=== PATIENT | male | born 1980 | race Caucasian/White ===

== ENCOUNTER 2024-04-08 08:29 | Outpatient (REF) | payer OTHER, SELFPAY ==
--- OUTSIDE RECORDS SUMMARY | 2024-04-08 08:40 | XMS_ITS | Encounter Summary ---
Author Organization [employer] Address 75 [facility] 7 [place] [address] Care Team Providers Care Sludge Mill Operator Name Role Phone Celine Galvez NP Primary Care Provider [phone] Reason for Visit * Reason Comments Med Refill Encounter Details Date Type Department Care Team (Late Contact Info) Description 01/17/2024 Refill [facility] MEDICINE [address] [place] [address] Celine Galvez NP [address] [place] [address] Social History Tobacco Use Types Packs/Day Years Used Date Smoking Tobacco: Never Smokeless Tobacco: Never Alcohol Use Standard Drinks/Week Comments Never 0 (1 standard drink = 0.6 oz pur e alcohol) Sex and Gender Information Value Date Recorded Sex Assigned at Male 12/09/2021 10:15 AM EDT Legal Sex Male 10:15 AM EDT Gender Identity Male 12/09/2021 10:15 AM EDT Sexual Orientation Straight 12/09/2021 10 :15 AM EDT documented as of this encounter Plan of Treatment Upcoming Encounters Date Type Department Care Team (Late Contact Info) Description 04/29/2024 10:15 AM EDT Office Visit [facility] MEDICINE [address] [place] [address] Celine Galvez NP [address] [place] [address] documented as of this encounter Visit Diagnoses Not on filedocumented in this encounter Care Teams Sludge Mill Operator Relationship Specialty Start Date End Date Celine Galvez NP [address] [place] [address] PCP - General Family Medicine 04/13/23 documented as of this encounter
--- OUTSIDE RECORDS SUMMARY | 2024-04-08 08:40 | XMS_ITS | Encounter Summary ---
Author Organization [employer] Address 75 [facility] 7 [place] [address] Care Team Providers Care Medicaid Service Coordinator Name Role Phone Celine Galvez NP Primary Care Provider [phone] Reason for Visit * Reason Onset Date Comments Med Refill 03/09/2024 Encounter Details Date Type Department Care Team (Late Contact Info) Description 03/09/2024 Refill [facility] MEDICINE [address] [place] [address] Celine Galvez NP [address] [place] [address] Social History Tobacco Use Types Packs/Day Years [...] Description 04/29/2024 10:15 AM EDT Office Visit [facility] MEDICINE [address] [place] [address] Celine Galvez NP [address] [place] [address] documented as of this encounter Visit Diagnoses Not on filedocumented in this encounter Care Teams Medicaid Service Coordinator Relationship Specialty Start Date End Date Celine Galvez NP [address] [place] [address] PCP - General Family Medicine 04/13/23 documented as of this encounter
--- OUTSIDE RECORDS SUMMARY | 2024-04-08 08:40 | XMS_ITS | Encounter Summary ---
Author Organization [employer] Address 75 [facility] 7 [place] [address] Care Team Providers Care Car Shunter Name Role Phone KojoCeline bradford UMBERTO Primary Care Provider [phone] Reason for Visit * Reason Onset Date Comments chartprep 03/15/2024 Encounter Details Date Type Department Care Team (Late st Contact Info) Description 03/15/2024 Telephone [facility] MEDICINE [address] [place] [address] Franny Camacho MA chartprep Social History Tobacco Use Types Packs/Day Years [...] AM EDT documented as of this encounter Miscellaneous Notes * Telephone Encounter - Franny Camacho MA - 03/15/2024 3:26 PM EST Chart Prep Labs: done Images: done except XR toes Vaccines due: Covid Due, Hep A Due, Hep B Due, PCV20 Due, and Flu Due Referrals: Not Applicable Screenings: Colonoscopy , Eye Exam, and Foot Exam Overdue care gaps: A1C, Glucose, Sbirt, SDOH, PHQ-9, and Oral Health,THIAGO-7, Tobacco documented in this encounter Plan of Treatment Upcoming Encounters Date Type Department Care Team (Late st Contact Info) Description 04/29/2024 10:15 AM EDT Office Visit [facility] MED[facility]INE [address] [place] [address] Celine Galvez NP [address] [place] [address] documented as of this encounter Visit Diagnoses Not on filedocumented in this encounter Care Teams Car Shunter Relationship Specialty Start Date End Date Celine Galvez NP [address] [place] [address] PCP - General Family Medicine 04/13/23 documented as of this encounter
--- OUTSIDE RECORDS SUMMARY | 2024-04-08 08:40 | XMS_ITS | Encounter Summary ---
Author Organization [employer] Address 75 [facility] 7 [place] [address] Care Team Providers Care Color Laboratory Technician Name Role Phone Celine Galvez NP Primary Care Provider [phone] Reason for Visit * Reason Onset Date Comments Med Refill 03/08/2024 Encounter Details Date Type Department Care Team (Late st Contact Info) Description 03/08/2024 Refill [facility] MEDICINE [address] [place] [address] Celine Galvez NP [address] [place] [address] Social History Tobacco Use Types Packs/Day Years [...] encounter Miscellaneous Notes * Telephone Encounter - Jana Luevano LPN - 03/09/2024 8:07 AM EST Next appointment 03/30/24. * Telephone Encounter - Murali Gonzales - 03/08/2024 4:29 PM EST TC from pt requesting medication refill. Medications needing refill : Jardiance 10 MG To be sent to: [id number] - [place], [place] - [address] documented in this encounter Plan of Treatment Upcoming Encounters Date Type Department Care Team (Late st Contact Info) Description 04/29/2024 10:15 AM EDT Office Visit [facility] MEDICINE [address] [place] [address] Celine Galvez NP [address] [place] [address] documented as of this encounter Visit Diagnoses Not on filedocumented in this encounter Care Teams Color Laboratory Technician Relationship Specialty Start Date End Date Celine Galvez NP [address] [place] [address] PCP - General Family Medicine 04/13/23 documented as of this encounter
--- OUTSIDE RECORDS SUMMARY | 2024-04-08 08:40 | XMS_ITS | Encounter Summary ---
Author Organization [employer] Address 75 [facility] 7 [place] [address] Care Team Providers Care Contract Designer Name Role Phone Celine Galvez NP Primary Care Provider [phone] Encounter Details Date Type Department Care Team ([facility] st Contact Info) Description 03/30/2024 10:00 AM EST Office Visit [facility] MEDICINE [address] [place] [address] Celine Galvez NP [address] [place] [address] Type 2 diabetes mellitus without complication, without long-term current use of insulin ([facility]) (Primary Dx); Encounter for health-related screening; Vitamin D deficiency; Screening for colon cancer; Encounter for immunization; Intractable migraine without aura and without status migrainosus Social History Tobacco Use Types Packs/Day Years Used Date Smoking Tobacco: Never Smokeless Tobacco: Never Alcohol Use Standard Drinks/Week Comments Never 0 (1 standard drink = 0.6 oz pur e alcohol) Depression Answer Date Recorded Patient Health Questionnaire-9 Score 2 03/30/2024 Patient Health Questionnaire-9 Score 2 03/30/2024 Last PHQ-9: Questionnaire Data Not on file 0 03/30/2024 Housing Stability Answer Date Recorded What is your housing situation today? I have femi garcia 03/21/[address] you li ve. Do you have problems with any of the following? None of the above 03/21/2024 Food Insecurity Answer Date Recorded Within the past 12 months, y ou worried that your food would run out before you got money to buy more: Never True 03/21/2024 Within the past 12 months,th e food you bought just didn't last and you didn't have enough money to get more: Never True 11/2024 Transportation Answer Date Recorded In the past 12 months, has l ack of transportation kept you from medical appts, meetings, work or from getting things needed for daily living? No 03/21/2024 Utilities Answer Date Recorded In the past 12 months, has t he electric, gas, oil or water company threatened to shut off services in your home? Yes 03/30/2024 Depression Answer Date Recorded Patient Health Questionnaire-2 Score 0 03/30/2024 Internet Access Answer Date Recorded Internet Access Q1 Yes 03/21/2024 Internet Access Q2 Not on file 03/21/2024 Sex and Gender Information Value Date Recorded Sex Assigned at Male 12/09/2021 10:15 AM EDT Legal Sex Male 10:15 AM EDT Gender Identity Male 12/09/2021 10:15 AM EDT Sexual Orientation Straight 12/09/2021 10 :15 AM EDT documented as of this encounter Last Filed Vital Signs Vital Sign Reading Time Taken Comments Blood Pressure 125/86 03/30/2024 10:07 AM EST Pulse 88 03/30/2024 10:07 AM EST Temperature 36.5 ??C (97.7 ??F) 03/30/2024 10:[address] Respiratory Rate 20 03/30/2024 10:07 AM EST Oxygen Saturation 98% 03/30/2024 10:07 AM EST Inhaled Oxygen Concentration - - Weight 105 kg (232 lb) 03/30/2024 10:07 AM EST Height 175.3 cm (5' 9 ) 03/30/2024 10:07 AM EST Body Mass Index 34.26 03/30/2024 10:07 AM EST documented in this encounter Plan of Treatment Upcoming Encounters Date Type Department Care Team (Late st Contact Info) Description 04/29/2024 10:15 AM EDT Office Visit [facility] MEDICINE [address] [place] [address] Celine Galvez NP [address] [place] [address] Scheduled Orders Name Type Priority Associated Diagnoses Orde r Schedule Comprehensive Metabolic Panel Lab Routine Type 2 diabetes mellitus without complication, without long-term current use of insulin (CMS/HCC) Expected: 03/30/2024 (Approximate), Expires: 03/30/2025 Vitamin D, 25-Hydroxy, Total, Immunoassay Lab Routine Vitamin D deficiency Expected: 03/30/2024 (Approximate), Expires: 03/30/2025 Lipid Panel, Standard Lab Routine Type 2 diabetes mellitus without complication, without long-term current use of insulin (CMS/HCC) Expected: 03/30/2024 (Approximate), Expires: 03/30/2025 Hepatitis C Antibody with Reflex to HCV, RNA, Quantitative, Real-Time PCR Lab Routine Encounter for health-related screening Expected: 03/30/2024 (Approximate), Expires: 03/30/2025 HIV-1/2 Antigen and Antibodies, Fourth Generation, with Reflexes Lab Routine Encounter for health-related screening Expected: 03/30/2024 (Approximate), Expires: 03/30/2025 Hepatitis B Core Antibody, Total Lab Routine Encounter for health-related screening Expected: 03/30/2024 (Approximate), Expires: 03/30/2025 Hepatitis B surface antigen, EIA Lab Routine Encounter for health-related screening Expected: 03/30/2024 (Approximate), Expires: 03/30/2025 Hepatitis B Surface Antibody, Qualitative Lab Routine Encounter for health-related screening Expected: 03/30/2024 (Approximate), Expires: 03/30/2025 Cologuard?? colon cancer screening Lab Routine Screening for colon cancer Ordered: 03/30/2024 Albumin, Random Urine W/Creatinine Lab Routine Type 2 diabetes mellitus without complication, without long-term current use of insulin (CMS/HCC) Expected: 03/30/2024 (Approximate), Expires: 03/30/2025 documented as of this encounter Procedures Procedure Name Priority Date/Time Associated Diagnosis Comments POCT GLYCATED HEMOGLOBIN, TOTAL Routine 03/30/2024 10:25 AM EST Type 2 diabetes mellitus without complication, without long-term current use of insulin (CMS/HCC) POCT GLUCOSE Routine 03/30/2024 10:25 AM EST Type 2 diabetes mellitus without complication, without long-term current use of insulin ([facility]) documented in this encounter Results * (ABNORMAL) POCT HGB A1C (03/30/2024 10:25 AM EST) Hemoglobin A1C 6.7(A) 4.0 - 6.0 % QC Media Lot # [id number] Lot# Expiration Date 7,026 Blood 03/30/2024 10:2 5 AM EST us Celine Galvez NP POINT OF CARE TEST ENTER/EDIT O RDERABLES Final Result * POCT Glucose (03/30/2024 10:25 AM EST) Glucose Blood, POC 177 60 - 200 mg/dL QC Media Lot # [id number] Lot# Expiration Date 5302,[id number] Blood Capillary blood specimen / Unknown 03/30/2024 10:25 AM EST us Celine Galvez NP POINT OF CARE TEST ENTER/EDIT O RDERABLES Final Result documented in this encounter Visit Diagnoses Diagnosis Type 2 diabetes mellitus without complication, without long-term current use of insulin ([facility])- Primary Encounter for health-related screening Vitamin D deficiency Screening for colon cancer Special screening for malignant neoplasms, colon Encounter for immunization Intractable migraine without aura and without status migrainosus documented in this encounter Additional Health Concerns Assessment Noted Time PHQ-9 Depression Total Score: 2 03/30/19 25 10:13 AM EST documented as of this encounter Care Teams Contract Designer Relationship Specialty Start Date End Date Celine Galvez NP [address] [place] [address] PCP - General Family Medicine 04/13/23 documented as of this encounter
--- OUTSIDE RECORDS SUMMARY | 2024-04-08 08:41 | XMS_ITS | Encounter Summary ---
Author Organization [employer] Address 75 [facility] 7t [place] [address] Care Team Providers Care Check Viewer Name Role Phone Celine Galvez NP Primary Care Provider [phone] Reason for Visit * Reason Comments Pre-visit Planning SDOH Screening negat kaiden and Tobacco screening negative Encounter Details Date Type Department Care Team (Late st Contact Info) Description 03/21/2024 Patient Outreach [facility] MEDICINE [address] [place] [address] Celine Galvez NP [address] [place] [address] Pre-visit Planning (SDOH Screening negative and Tobacco screening negative) Social History Tobacco Use Types Packs/Day Years Used Date Smoking Tobacco: Never Smokeless Tobacco: Never Alcohol Use Standard Drinks/Week Comments Never 0 (1 standard drink = 0.6 oz pur e alcohol) Housing Stability Answer Date Recorded What is [...] to shut off services in your home? No 03/21/2024 Internet Access Answer Date Recorded Internet Access Q1 Yes 03/21/2024 Internet Access Q2 Not on file 03/21/2024 Sex and Gender Information Value Date Recorded Sex Assigned at Male 12/09/2021 10:15 AM EDT Legal Sex Male 10:15 AM EDT Gender Identity Male 12/09/2021 10:15 AM EDT Sexual Orientation Straight 12/09/2021 10 :15 AM EDT documented as of this encounter Progress Notes * Shruthi Soria - 03/21/2024 9:43 AM EST ANA Alegria placed successful outbound call to patient for pre-visit planning. Patient name and confirmed. Patient confirms appt date and time, and has transportation arrangements. Biggest concern for appointment at this time is no concerns. Patient advised to bring to appointment a photo id and insurance card. Appropriate screenings completed in anticipation of appointment. documented in this encounter Plan of Treatment Upcoming Encounters Date Type Department Care Team (Late st Contact Info) Description 04/29/2024 10:15 AM EDT Office Visit [facility] MEDICINE [address] [place] [address] Celine Galvez NP [address] [place] [address] documented as of this encounter Visit Diagnoses Not on filedocumented in this encounter Care Teams Check Viewer Relationship Specialty Start Date End Date Celine Galvez NP [address] [place] [address] PCP - General Family Medicine 04/13/23 documented as of this encounter
--- OUTSIDE RECORDS SUMMARY | 2024-04-08 08:41 | XMS_ITS | Encounter Summary ---
Author Organization [employer] Address 75 [facility] 7 [place] [address] Care Team Providers Care Aluminum Can Collector Name Role Phone Celine Galvez NP Primary Care Provider [phone] Reason for Visit * Reason Comments Med Refill Encounter Details Date Type Department Care Team (Late Contact Info) Description 10/14/2023 Refill [facility] MEDICINE [address] [place] [address] Celine Galvez NP [address] [place] [address] Social History Tobacco Use Types Packs/Day Years [...] Description 04/29/2024 10:15 AM EDT Office Visit [facility] [address] [place] [address] Celine Galvez NP [address] [place] [address] documented as of this encounter Visit Diagnoses Not on filedocumented in this encounter Care Teams Aluminum Can Collector Relationship Specialty Start Date End Date Celine Galvez NP [address] [place] [address] PCP - General Family Medicine 04/13/23 documented as of this encounter
--- OUTSIDE RECORDS SUMMARY | 2024-04-08 08:41 | XMS_ITS | Encounter Summary ---
Author Organization [employer] Address [address] [place] [address] [place] [address] Care Team Providers Care Partition Setter Name Role Phone Emerita Chavarria STEWARDING SUPERVISOR Primary Care Provider [phone] Mary Ruff STEWARDING SUPERVISOR Primary Care Provider [phone] Celine Galvez NP Primary Care Provider [phone] Reason for Visit * Reason Onset Date Comments triage 04/11/2022 Encounter Details Date Type Department Care Team (Late st Contact Info) Description 04/11/2022 Telephone [facility] MEDICINE [address] [place] [address] Emerita Chavarria FNP [address] [place] [address] Dept [place] [address] triage Social History Tobacco Use Types Packs/Day Years [...] encounter Miscellaneous Notes * Telephone Encounter - Anson Mcnair - 04/11/2022 11:26 AM EST Symptoms: Headache, Eye Swelling Outcome: Schedule an urgent appointment (within 1 hour) or talk to a nurse or provider soon Reason: Severe pain now The caller accepted this outcome documented in this encounter Plan of Treatment Upcoming Encounters Date Type Department Care Team (Late st Contact Info) Description 04/29/2024 10:15 AM EDT Office Visit [facility] MEDICINE [address] [place] [address] Celine Galvez NP [address] [place] [address] documented as of this encounter Visit Diagnoses Not on filedocumented in this encounter Care Teams Partition Setter Relationship Specialty Start Date End Date Emerita Chavarria FNP PCP - General Family Medicine 11/30/20 11/17/22 Mary Ruff FNP [address] [place] [address] PCP - General Family Medicine 11/18/22 04/12/23 Celine Galvez NP [address] [place] [address] PCP - General Family Medicine 04/13/23 documented as of this encounter
--- OUTSIDE RECORDS SUMMARY | 2024-04-08 08:41 | XMS_ITS | Encounter Summary ---
Author Organization [employer] Address 75 [facility] 7t [place] [address] Care Team Providers Care Cemetery Manager Name Role Phone Celine Galvez NP Primary Care Provider [phone] Reason for Visit * Reason Comments Med Refill Encounter Details Date Type Department Care Team (Late Contact Info) Description 10/29/2023 Refill [facility] MEDICINE [address] [place] [address] Celine Galvez NP [address] [place] [address] Social History Tobacco Use Types Packs/Day Years [...] encounter Miscellaneous Notes * Telephone Encounter - Celine Galvez NP - 10/30/2023 9:05 AM EDT Approving, but needs appt for additional refills. documented in this encounter Plan of Treatment Upcoming Encounters Date Type Department Care Team (Late Contact Info) Description 04/29/2024 10:15 AM EDT Office Visit [facility] MEDICINE [address] [place] [address] Celine Galvez NP [address] [place] [address] documented as of this encounter Visit Diagnoses Not on filedocumented in this encounter Care Teams Cemetery Manager Relationship Specialty Start Date End Date Celine Galvez NP [address] [place] [address] PCP - General Family Medicine 04/13/23 documented as of this encounter
--- OUTSIDE RECORDS SUMMARY | 2024-04-08 08:41 | XMS_ITS | Clinical Summary ---
Author Organization [employer] Address [address] [facility] 7t [place] [address] Care Team Providers Care Hand Etcher Helper Name Role Phone Kojosuzette Celine SHIPMAN Primary Care Provider [phone] Allergies No known active allergies Medications cholecalcifero l (Vitamin D-3) 50 MCG (1999) capsule Take 1 capsule by mouth in the morning. 12/08/19 21 Active empagliflozin (Jardiance) 10 MG TAKE 1 TABLET BY MOUTH EVERY DAY IN THE MORNING 90 tablet 03/09/19 25 Active metFORMIN (Glucophage) 500 MG tablet TAKE 2 TABLETS(1000 MG) BY MOUTH TWICE DAILY 360 tablet 03/17/19 25 Active SUMAtriptan (Imitrex) 25 MG tabletIndicati ons:Intractabl e migraine without aura and without status migrainosus Take 1 tablet (25 mg) by mouth 1 (one) time if needed for migraine for up to 9 days. May repeat dose once in 2 hours if no relief. Do not exceed 2 doses in 24 hours. 9 tablet 03/30/19 25 Active naproxen (Naprosyn) 500 MG tabletIndicati ons:Intractabl e migraine without aura and without status migrainosus Take 1 tablet (500 mg) by mouth 2 times daily. 60 tablet 03/30/19 25 2024 Active Blood Glucose Monitoring Suppl (FreeStyle Lite) deviceIndicati ons:Type 2 diabetes mellitus without complication, without long-term current use of insulin ([facility]) Inject 1 each under the skin 3 times daily. 1 each 03/30/19 25 Active glucose blood (FREESTYLE LITE) test strip 1 each by Other route 3 times daily. 100 each 3 03/30/19 25 2024 Active Lancets 33G misc 1 each 3 times daily. 1 each 03/30/19 Active clotrimazole (Lotrimin) 1 % cream Apply 2g twice a day to affected areas 07/25/19 22 2024 Discontinued(M ed list cleanup (will not trigger notification to Pharmacy)) glucose blood (FREESTYLE LITE) test strip every 12 (twelve) hours. 12/08/19 21 2024 Discontinued(R eorder (will not trigger notification to Pharmacy)) ketoconazole (NIZOral) 2 % shampoo apply by topical route 2-3 times a week to the affected area(s), lather, leave in place for 5 minutes, and then rinse off with water 04/27/192024 Discontinued(M ed list cleanup (will not trigger notification to Pharmacy)) terbinafine (LamISIL) 250 MG tablet take 1 tablet by oral route every day x 12 weeks 08/31/192024 Discontinued(M ed list cleanup (will not trigger notification to Pharmacy)) Blood Glucose Monitoring Suppl (FreeStyle Lite) device TEST THREE TIMES DAILY DIRECTED 04/27/19 22 2024 Discontinued(R eorder (will not trigger notification to Pharmacy)) ciclopirox (Penlac) 8 % solution Apply topically at bed time. 12/30/192024 Discontinued(M ed list cleanup (will not trigger notification to Pharmacy)) hydrocortisone valerate (West-Emanuel) 0.2 % ointment Apply topically every 12 (twelve) hours. 12/30/192024 Discontinued(M ed list cleanup (will not trigger notification to Pharmacy)) ibuprofen 600 MG tablet TAKE 1 TABLET BY MOUTH EVERY 8 HOURS NEEDED FOR BREAKTHROUGH PAIN. MAX 2400 MG DAILY 10/12/19 22 2024 Discontinued(M ed list cleanup (will not trigger notification to Pharmacy)) Ibuprofen capsuleIndicat ions:Toe pain, left Take 2-3 tablets every 6 hours as needed for pain or fever 120 capsule 02/09/19 23 2024 Discontinued(M ed list cleanup (will not trigger notification to Pharmacy)) metFORMIN (Glucophage) 500 MG tablet TAKE 2 TABLETS(1000 MG) BY MOUTH TWICE DAILY 360 tablet 11/25/19 24 2024 Discontinued Active Problems Problem Noted Date Diagnosed Date Lipoma 04/26/2021 Tobacco dependence syndrome 04/26/2021 Vitamin D deficiency 2017 Sleep apnea 11/20/2017 Type 2 diabetes mellitus without complication Encounters Date Type Department Care Team Description 03/30/2024 10:00 AM EST Office Visit [facility] MEDICINE [address] [place] [phone] Celine Galvez NP Type 2 diabetes mellitus without complication, without long-term current use of insulin ([facility]) (Primary Dx); Encounter for health-related screening; Vitamin D deficiency; Screening for colon cancer; Encounter for immunization; Intractable migraine without aura and without status migrainosus 03/21/2024 Patient Outreach [facility] MEDICINE [address] [place] [address] Celine Galvez NP Pre-visit Planning (SDOH Screening negative and Tobacco screening negative) 03/17/2024 Refill [facility] CHC MED & PEDS [address] [place] [address] Celine Galvez NP 03/15/2024 Telephone [facility] MEDICINE [address] [place] [address] Franny Camacho MA chartprep 03/09/2024 Refill [facility] MEDICINE [address] [place] [phone] Celine Galvez NP 03/08/2024 Refill [facility] MEDICINE [address] [place] [address] Celine Galvez NP 01/22/2024 Telephone [facility] MEDICINE [address] [place] [phone] Franny Camacho MA schedule TP appt 01/17/2024 Refill [facility] MEDICINE [address] [place] [address] Appram, Celine, JOINTER MACHINE OPERATOR from Last 3 Months Immunizations Name Administration Dates Next Due Influenza injectable quadriv alent IIV4 with preservative 11/20/2017 Influenza injectable quadriv alent preservative free 03/18/2023,12/07/2020,11/10/2019,2019 Pfizer Covid-19 Vaccine 12+ 03/18/2023 Pneumococcal Conjugate PCV 20 03/30/2024 Tdap 04/26/2021 Family History Medical History Relation Name Comments Heart disease Father Diabetes Mother Heart disease Paternal Grandfather Relation Name Status Comments Father Mother Paternal Grandfather Social History Tobacco Use Types Packs/Day Years Used Date Smoking Tobacco: Never Smokeless Tobacco: Never Tobacco Cessation:Counseling Given: No Alcohol Use Standard Drinks/Week Comments Never 0 [...] Orientation Straight 12/09/2021 10 :15 AM EDT Last Filed Vital Signs Vital Sign Reading [...] Mass Index 34.26 03/30/2024 10:07 AM EST Plan of Treatment Upcoming Encounters Date Type Department Care Team (Late st Contact Info) Description 04/29/2024 10:15 AM EDT Office Visit [facility] MEDICINE [address] [place] [address] Celine Galvez NP [address] [place] [address] Health Maintenance Due Date Last Done Comments CT Colonography 1978 Colonoscopy 1978 Colorectal Cancer Screening 1978 FIT DNA/Cologuard 1978 FIT 1978 FOBT 1978 Sigmoidoscopy 1978 Diabetes: Foot Exam 1988 Eye Exam 1988 Family Planning (PISQ) 1993 Hepatitis A Vaccines (1 of 2 - Risk 2-dose series) 1997 Hepatitis B Vaccines (1 of 3 - 19+ 3-dose series) 1997 Diabetes: Urine Protein Screening 07/24/2022 07/24/2021 Lipid Panel 07/24/2022 07/24/2021, 04/26/2021 COVID-19 Vaccine ( season) 2023 03/18/2023, 03/01/2021, 06/06/2020 Influenza Vaccine (#1) 2023 , 12/07/2020, 11/10/2019, Additional history exists Diabetes: Hemoglobin A1C 09/27/2024 025, 03/18/2023, 07/24/2021 Alcohol/Substance Use Screening 03/30/2025 03/30/2024 Depression Screening 03/30/2025 03/30/2024, 03/30/19 SDOH Screening 03/30/2025 03/30/2024 Tobacco Screening 03/30/2025 03/30/2024 Zoster Vaccines (1 of 2) 2028 DTaP/Tdap/Td Vaccines (2 - Td or Tdap) 04/27/2031 04/26/2021 RSV Patients and Patients Aged 60 years or older (1 - 1-dose 75+ series) 2053 HIV Screening Completed 04/26/2021 Hepatitis C Screening Completed 07/24/2021, 022 Pneumococcal Vaccine: Pediatrics (0 to 5 Years) and At-Risk Patients (6 to 49) Years) Completed 03/30/2024 HIB Vaccines Aged Out No longer eligi ble based on patient's age to complete this topic HPV Vaccines Aged Out No longer eligi ble based on patient's age to complete this topic IPV Vaccines Aged Out No longer eligi ble based on patient's age to complete this topic Meningococcal Vaccine Aged Out No lonnie alta eligible based on patient's age to complete this topic RSV under 20 months Aged Out No longe r eligible based on patient's age to complete this topic Rotavirus Vaccines Aged Out No longer eligible based on patient's age to complete this topic Procedures Procedure Name Priority Date/Time Associated Diagnosis Comments POCT GLYCATED HEMOGLOBIN, TOTAL Routine 03/30/2024 10:25 AM EST Type 2 diabetes mellitus without complication, without long-term current use of insulin (CMS/HCC) POCT GLUCOSE Routine 03/30/2024 10:25 AM EST Type 2 diabetes mellitus without complication, without long-term current use of insulin (CMS/HCC) ZZZ HISTORICAL HEPATITIS C AB W/REFL TO HCV RNA, QN, PCR Routine 07/24/2021 10:29 AM EDT ALBUMIN, RANDOM URINE W/CREATININE Routine 07/24/2021 10:29 AM EDT LIPID PANEL, STANDARD Routine 07/24/2021 10:29 AM EDT HIV 1/2 ANTIGEN/ANTIBODY, FOURTH GENERATION W/RFL Routine 04/26/2021 10:55 AM EDT from Last 3 Months or Most Recently Relevant to Health Maintenance Results * (ABNORMAL) POCT HGB A1C (03/30/2024 10:25 AM EST) Hemoglobin A1C 6.7(A) 4.0 - 6.0 % QC Media Lot # [id number] Lot# Expiration Date Blood 03/30/2024 10:[address] [facility] Kojo JOINTER MACHINE OPERATOR POINT OF CARE TEST ENTER/EDIT O RDERABLES Final Result * POCT Glucose (03/30/2024 10:25 AM EST) Glucose Blood, POC 177 60 - 200 mg/dL QC Media Lot # [id number] Lot# Expiration Date Blood Capillary blood specimen / Unknown 03/30/2024 10:[address] [facility] POINT OF CARE TEST ENTER/EDIT O RDERABLES Final Result * HEPATITIS C AB W/REFL TO HCV RNA, QN, PCR (07/24/2021 10:29 AM EDT) HEPATITIS C ANTIBODY NON-REACT JN NON-REACT JN [facility] INDEX 0.03 <1.00 [facility] Comment: ?? HCV antibody was non-reactive. There is no laboratory ?? evidence of HCV infection. ?? In most cases, no further action is required. However, if recent HCV exposure is suspected, a test for HCV RNA (test code 13452) is suggested. ?? For additional information please refer to http://education.questdiagnostics.com/faq/MEE85u5 (This link is being provided for informational/ educational purposes only.) ?? 07/24/2021 10:2 9 AM EDT us Emerita Chavarria SMOKE CONTROL SUPERVISOR HISTORICAL/NON ORDERABLE L ABS Final Result Performing Organization Address [facility] Phone Number [facility] [address] * ALBUMIN, RANDOM URINE W/CREATININE (07/24/2021 10:29 AM EDT) Microalbumin Urine 0.7 See Note: mg/dL [facility] Comment: Reference Range: ?? Reference Range Not established Microalb/Creat Ratio 10 <30 mcg/mg creat [facility] Comment: ?? The ADA defines abnormalities in albumin excretion as follows: ?? Albuminuria Category ?Result (mcg/mg creatinine) ?? Normal to Mildly increased ?? <30 Moderately increased ? 30-299 ?? Severely increased ? > OR = 300 ?? The ADA recommends that at least two of three specimens collected within a 3-6 month period be abnormal before considering a patient to be within a diagnostic category. Creatinine, Urine 73 20 - 320 mg/dL [facility] 07/24/2021 10:2 9 AM EDT Emerita Chavarria SMOKE CONTROL SUPERVISOR LAB URINE ORDERABLES Final Result Performing Organization Address [facility] Phone Number [facility] [address] * (ABNORMAL) LIPID PANEL, STANDARD (07/24/2021 10:29 AM EDT) Chol/HDLC Ratio 4.8 <5.0 (calc) [facility] Cholesterol, Total 220(H) <200 mg/dL [facility] HDL Cholesterol 46 > OR = 40 mg/dL [facility] LDL Cholesterol 134(H) mg/dL (calc) [facility] Comment: Reference range: <100 ?? Desirable range <100 mg/dL for primary prevention; ?? <70 mg/dL for patients with CHD or diabetic patients ?? with > or = 2 CHD risk factors. ?? LDL-C is now calculated using the Elizabeth ?? calculation, which is a validated novel method providing ?? better accuracy than the Friedewald equation in the ?? estimation of LDL-C. ?? Jesus BOYD et al. ROSS. 2013;310(19): 9171-7167 ?? (http://ClickEquations.Quewey/faq/SOB110) Non-HDL Cholesterol 174(H) <130 mg/dL (calc) [facility] Comment: For patients with diabetes plus 1 major ASCVD risk ?? factor, treating to a non-HDL-C goal of <100 mg/dL ?? (LDL-C of <70 mg/dL) is considered a therapeutic ?? option. Triglycerides 263(H) <150 mg/dL [facility] Comment: ?? If a non-fasting specimen was collected, consider repeat triglyceride testing on a fasting specimen if clinically indicated. ?? July et al. J. of Clin. Lipidol. 2015;9:129-169. ?? 07/24/2021 10:2 9 AM EDT Emerita Chavarria [facility] LAB BLOOD ORDERABLES Final Result [facility] [address] * HIV 1/2 ANTIGEN/ANTIBODY,FOURTH GENERATION W/RFL (04/26/2021 10:55 AM EDT) HIV-1/2 ANTIGEN AND ANTIBODIES, 4TH GENERATION W/ REFLEX NON-REACT JN NON-REACT JN [facility] Comment: HIV-1 antigen and HIV-1/HIV-2 antibodies were not detected. There is no laboratory evidence of HIV infection. ?? PLEASE NOTE: This information has been disclosed to you from records whose confidentiality may be protected by state law. ??If your state requires such protection, then the state law prohibits you from making any further disclosure of the information without the specific written consent of the person to whom it pertains, or as otherwise permitted by law. A general authorization for the release of medical or other information is NOT sufficient for this purpose. ? For additional information please refer to http://education.NEBOTRADE.Bid Nerd/faq/ZVY784 (This link is being provided for informational/ educational purposes only.) ? The performance of this assay has not been clinically validated in patients less than 2 years old. ?? 04/26/2021 10:5 5 AM EDT us Emerita Chavarria SMOKE CONTROL SUPERVISOR LAB BLOOD ORDERABLES Final Result [facility] [address] from Last 3 Months or Most Recently Relevant to Health Maintenance Insurance [facility] Care Teams Hand Etcher Helper Relationship Specialty Start Date End Date Celine Galvez NP [address] [place] [address] PCP - General Family Medicine 04/13/23
--- OUTSIDE RECORDS SUMMARY | 2024-04-08 08:41 | XMS_ITS | Clinical Summary ---
[facility] Organization [facility] Address [address] [place] [address] Care Team Providers Care Check Pilot Name Role Phone Unavailable Primary Care Provider Unavailabl e Social History Tobacco Use Types Packs/Day Years Used Date Smoking Tobacco: Never Assessed Sex and Gender Information Value Date Recorded Sex Assigned at Not on file Legal Sex Male 4:56 AM EST Gender Identity Not on file Sexual Orientation Not on file Plan of Treatment Health Maintenance Due Date Last Done Comments DTaP,Tdap,and Td Vaccines (1 - Tdap) 1997 Hepatitis B Vaccines (1 of 3 - 19+ 3-dose series) 1997 Cholesterol Screening (Lipid Panel) 01/12/2022 Colorectal Cancer Screening: Colonoscopy 01/12/2022 Depression Screening 01/12/2022 HIV Screening 01/12/2022 Hepatitis C Screening 01/12/2022 Social Influencers of Health Screening 01/12/2022 COVID-19 Vaccine (2023-2 5 season) 2023 Influenza Vaccine (#1) 2023 HIB Vaccines Aged Out No longer eligi ble based on patient's age to complete this topic HPV Vaccines Aged Out No longer eligi ble based on patient's age to complete this topic Hepatitis A Vaccines Aged Out No long er eligible based on patient's age to complete this topic IPV Vaccines Aged Out No longer eligi ble based on patient's age to complete this topic MMR Vaccines Aged Out No longer eligi ble based on patient's age to complete this topic Meningococcal ACWY Vaccine Aged Out N o longer eligible based on patient's age to complete this topic Meningococcal B Vacine Aged Out No lo nger eligible based on patient's age to complete this topic Pneumococcal Vaccine: Pediat rics (0 to 5 Years) and At-Risk Patients (6 to 64 Years) Aged Out No longer eligible b ased on patient's age to complete this topic RSV Immunization Patients Un alise 20 months Aged Out No longer eligible b ased on patient's age to complete this topic Varicella Vaccines Aged Out No longer eligible based on patient's age to complete this topic
--- OUTSIDE RECORDS SUMMARY | 2024-04-08 08:41 | XMS_ITS | Encounter Summary ---
Author Organization [employer] Address [address] [facility] 7[address] [place] [address] Care Team Providers Care Regional Account Executive Name Role Phone Celine Galvez NP Primary Care Provider [phone] Reason for Visit * Reason Comments Med Refill Encounter Details Date Type Department Care Team (Late Contact Info) Description 03/17/2024 Refill [facility] CHC MED & PEDS [address] [place] [address] Celine Galvez NP [address] [place] [address] Social History Tobacco Use Types Packs/Day Years [...] Description 04/29/2024 10:15 AM EDT Office Visit [facility] MEDICINE [address] [place] [address] Celine Galvez NP [address] [place] [address] documented as of this encounter Visit Diagnoses Not on filedocumented in this encounter Care Teams Regional Account Executive Relationship Specialty Start Date End Date Celine Galvez NP [address] [place] [phone] PCP - General Family Medicine 04/13/23 documented as of this encounter
--- OUTSIDE RECORDS SUMMARY | 2024-04-08 08:41 | XMS_ITS | Encounter Summary ---
Author Organization [employer] Address [address] [facility] 7t [place] [address] Care Team Providers Care High School Science Teacher Name Role Phone Celine Galvez NP Primary Care Provider [phone] Reason for Visit * Reason Comments Med Refill Encounter Details Date Type Department Care Team (Late Contact Info) Description 08/06/2023 Refill [facility] CHC MED & PEDS [address] [place] [address] Celine Galvez NP [address] [place] [address] Social History Tobacco Use Types Packs/Day Years [...] EDT Office Visit [facility] MEDICINE [address] [place] [address] Celine Galvez NP [address] [place] [address] documented as of this encounter Visit Diagnoses Not on filedocumented in this encounter Care Teams High School Science Teacher Relationship Specialty Start Date End Date Celine Galvez NP [address] [place] [phone] PCP - General Family Medicine 04/13/23 documented as of this encounter
--- OUTSIDE RECORDS SUMMARY | 2024-04-08 08:41 | XMS_ITS | Encounter Summary ---
Author Organization [employer] Address [address] [facility] 7t [place] [address] Care Team Providers Care Assistant Art Director Name Role Phone Celine Galvez NP Primary Care Provider [phone] Reason for Visit * Reason Comments Med Refill Encounter Details Date Type Department Care Team (Late Contact Info) Description 08/06/2023 Refill [facility] CHC MED & PEDS [address] [place] [address] Mary Ruff, PRODUCT SAFETY HEAD [address] [place] [address] Social History Tobacco Use Types Packs/Day Years [...] Telephone Encounter - Celine Galvez NP - 08/06/2023 1:00 PM EDT Approving, but needs appt for additional refills. documented in this encounter Plan of Treatment Upcoming Encounters Date Type Department Care Team (Late Contact Info) Description 04/29/2024 10:15 AM EDT Office Visit [facility] MEDICINE [address] [place] [address] Celine Galvez NP [address] [place] [address] documented as of this encounter Visit Diagnoses Not on filedocumented in this encounter Care Teams Assistant Art Director Relationship Specialty Start Date End Date Celine Galvez NP [address] [place] [address] PCP - General Family Medicine 04/13/23 documented as of this encounter
--- OUTSIDE RECORDS SUMMARY | 2024-04-08 08:41 | XMS_ITS | Encounter Summary ---
Author Organization [employer] Address [address] [facility] [address] [place] [address] Care Team Providers Care Application Technician Name Role Phone Celine Galvez NP Primary Care Provider [phone] Reason for Visit * Reason Comments Med Refill Encounter Details Date Type Department Care Team (Late Contact Info) Description 11/23/2023 Refill [facility] CHC MED & PEDS [address] [place] [address] Celine Galvez NP [address] [place] [address] Social History Tobacco Use Types Packs/Day Years [...] Telephone Encounter - Celine Galvez NP - 11/25/2023 8:53 AM EDT Approving, but needs appt for additional refills. documented in this encounter Plan of Treatment Upcoming Encounters Date Type Department Care Team (Late Contact Info) Description 04/29/2024 10:15 AM EDT Office Visit [facility] MEDICINE [address] [place] [address] Celine Galvez NP [address] [place] [address] documented as of this encounter Visit Diagnoses Not on filedocumented in this encounter Care Teams Application Technician Relationship Specialty Start Date End Date Celine Galvez NP [address] [place] [address] PCP - General Family Medicine 04/13/23 documented as of this encounter
--- OUTSIDE RECORDS SUMMARY | 2024-04-08 08:41 | XMS_ITS | Encounter Summary ---
Author Organization [employer] Address [address] [facility] 7 [place] [address] Care Team Providers Care Industrial Furnace Fabricator Name Role Phone Celine Galvez NP Primary Care Provider [phone] Reason for Visit * Reason Onset Date Comments Med Refill 10/16/2023 Encounter Details Date Type Department Care Team (Late st Contact Info) Description 10/16/2023 Telephone [facility] MEDICINE [address] [place], [place] [phone] Celine Galvez NP [address] [place], [place] [phone] Med Refill Social History Tobacco Use Types Packs/Day Years [...] Telephone Encounter - Jana Luevano LPN - 10/16/2023 1:34 PM EDT Medication not pended as patient last seen 02/07/22. Please advise. * Telephone Encounter - Naren Espino - 10/16/2023 1:29 PM EDT TC from pt requesting medication refill. Medications needing refill : Jardiance 10 MG To be sent to: [id number] - [place], [place] - [address] documented in this encounter Plan of Treatment Upcoming Encounters Date Type Department Care Team (Late st Contact Info) Description 04/29/2024 10:15 AM EDT Office Visit [facility] MEDICINE [address] [place] [address] Celine Galvez NP [address] [place] [address] documented as of this encounter Visit Diagnoses Not on filedocumented in this encounter Care Teams Industrial Furnace Fabricator Relationship Specialty Start Date End Date Celine Galvez NP [address] [place] [id number] PCP - General Family Medicine 04/13/23 documented as of this encounter
[2024-04-08 11:35] LABS: Alanine Aminotransferase 25 U/L (0-40); Albumin Level 4.3 g/dL (3.5-5.0); Alkaline Phosphatase 76 U/L (39-117); Anion Gap 11 (12-20); Aspartate Amino Transferase 21 U/L (5-37); Bilirubin Total 0.6 mg/dL (0.0-1.0); Blood Urea Nitrogen 16 mg/dL (9-16); Calcium 9.2 mg/dL (8.4-10.2); Carbon Dioxide 26 mmol/L (22-29); Chloride 109 mmol/L (96-108); Cholesterol 182 mg/dL (<200); Estimated Glomerular Filt Rate > 60; Glucose Random 138 mg/dL (60-115); HDL Cholesterol 39 mg/dL (>40); LDL Cholesterol Calculated 117 mg/dL (<100); Sodium 142 mmol/L (135-145); Total Protein 8.1 g/dL (6.5-8.0); Triglycerides 131 mg/dL (<150)
[2024-04-08 11:43] LABS: Microalbum/Creatinine Ratio Ur 6.7 ug/mg cr (<30)
[2024-04-08 11:52] LABS: Vitamin D 25-OH Total 15.9 ng/mL (>30)
[2024-04-08 12:49] LABS: HBS Num1 0.65 mIU/mL (0-7.99); HBc Num1 0.07 S/CO (0.00-0.79); HBsAGNum1 0.42 S/CO (0.00-0.99); HIV AB/AG Nonreactive (Nonreactive); HIV Num 1 0.06 S/CO (0.00-0.99); Hepatitis B Core Antibody Nonreactive (Nonreactive); Hepatitis B Surface Antigen Negative (Negative); ~Hepatitis B Surface Antibody NONREACTIVE (Nonreactive); ~Hepatitis C Antibody Nonreactive (Nonreactive)
== END 2024-04-08 08:30 | disposition home or self-care (01) ==
LOC: HO.HHCL 08:29
PROVIDERS: Visit Provider Nurse Practitioner
DX: E11.9 Type 2 diabetes mellitus without complications (principal); E55.9 Vitamin D deficiency, unspecified
CPT/HCPCS: 36415; 80053; 80061; 82043; 82306; 82570; 86704; 86706; 86803; 87340; 87389

== ENCOUNTER 2025-01-26 11:13 | Outpatient (REF) | payer OTHER, SELFPAY ==
--- NOTE | ~2025-01-26 | XR_ITS ---
Examination: 2 view left lower leg TECHNIQUE: AP and lateral x-rays of the left tibia and fibula INDICATION: Cellulitis left lower extremity, one in the mid lower leg, pain, trauma, diabetic Prior: None FINDINGS: No fracture, erosion, periosteal new bone formation, or other abnormality aside from mild atherosclerotic vascular calcifications. XR/XR tibia fibula LT 2V IMPRESSION: Unremarkable left tibia and fibula. Electronically signed by: Robert Whittaker MD 01/26/2025 12:23 PM [facility]
--- OUTSIDE RECORDS SUMMARY | 2025-01-26 10:20 | XMS_ITS | Encounter Summary ---
Author Organization [employer] Address [address] [facility] [address] 7[address] [place] [address] Care Team Providers Care Life Skills Coordinator Name Role Phone Celine Galvez NP Primary Care Provider [phone] Encounter Details Date Type Department Care Team ([facility] st Contact Info) Description 01/26/2025 10:20 AM EST Office Visit [facility] [address] [place] [address] Cellulitis of left lower extremity (Primary Dx) Social History Tobacco Use Types Packs/Day Years Used Date Smoking Tobacco: Never Passive Smoke Exposure: Never Smokeless Tobacco: Never Alcohol Use Standard [...] Sign Reading Time Taken Comments Blood Pressure 134/82 01/26/2025 10:43 AM EST Pulse 101 01/26/2025 10:43 AM EST Temperature 36.6 C (97.8 F) 01/26/2025 10:43 AM EST Respiratory Rate 20 01/26/2025 10:43 AM EST Oxygen Saturation - - Inhaled Oxygen Concentration - - Weight 102 kg (224 lb 3.2 oz) 01/26/2025 10:43 A M EST Height 175.3 cm (5' 9 ) 01/26/2025 10:43 AM EST Body Mass Index 33.11 01/26/2025 10:43 AM EST documented in this encounter Plan of Treatment Upcoming Encounters Date Type Department Care Team (Late st Contact Info) Description 03/15/2025 2:00 PM EST Office [facility] [address] [place] [address] Maureen Guillaume, OD [address] [place] [address] 03/16/2025 11:00 AM EST Office Visit [facility] [address] [place] [address] Celine aGlvez NP 230 [place] [address] Scheduled Orders Name Type Priority Associated Diagnoses Orde r Schedule Wound Culture Microbiology Routine Cellulitis of left lower extremity Ordered: 01/26/2025 documented as of this encounter Goals Goal Patient Goal Type Associated Problems Recent Progress Patient-Stated? Author Help patients manage their type 2 diabetes Care Plan Help patients manage their type 2 diabetes Franny Medrano MA Patient has chronic kidney disease Care Plan Patient has chronic kidney disease Franny Medrano MA Patient has chronic kidney disease Care Plan Patient has chronic kidney disease Ignacia Torres MA documented as of this encounter Procedures Procedure Name Priority Date/Time Associated Diagnosis Comments XR TIBIA FIBULA 2 VIEWS LEFT Routine 01/26/2025 11:58 AM EST Cellulitis of left lower extremity documented in this encounter Results * XR Tibia Fibula 2 Views Left (01/26/2025 11:58 AM EST) Anatomical Region Laterality Modality Lower Extremities, Lower Leg Left Rad iographic Imaging 01/26/2025 11:5 8 AM EST Narrative 01/26/2025 12:26 PM EST [address] [address] XRay Report Signed Patient: Jeff Tello Jr. MR#: [id number] : 1980 Acct:[id number] Age/Sex: 44 / M ADM Date: 01/26/25 Loc: HO.HHCX Attending Dr: Jana Pickett DO Ordering Physician: Jana Pickett DO Date of Service: 01/26/25 Procedure(s): XR tibia fibula LT 2V Accession Number(s): [id number] cc: [facility]; Jana Pickett DO Reason for Exam: PAIN Examination: 2 view left lower leg TECHNIQUE: AP and lateral x-rays of the left tibia and fibula INDICATION: Cellulitis left lower extremity, one in the mid lower leg, pain, trauma, diabetic Prior: None FINDINGS: No fracture, erosion, periosteal new bone formation, or other abnormality aside from mild atherosclerotic vascular calcifications. XR/XR tibia fibula LT 2V IMPRESSION: Unremarkable left tibia and fibula. Electronically signed by: Robert Whittaker MD 01/26/2025 12:23 PM EST RP Dictated By: Robert Whittaker MD Signed By: <Electronically signed by Robert Whittaker MD in OV> 01/26/25 1223 DD/ 1158 TD/TT: 01/26/25 1200 Cold Working Inspector: Procedure Note Donotuseinterpreter, Image - 01/26/[address] [address] XRay Report Signed Patient: Jeff Tello Jr.MR#: [id number] : 1980Acct:[id number] Age/Sex: 44 / MADM Date: 01/26/25 Loc: .HHCX Attending Dr: Jana Pickett DO Ordering Physician: Jana Pickett DO Date of Service: 01/26/25 Procedure(s): XR tibia fibula LT 2V Accession Number(s): [id number] cc: [facility]; Jana Pickett DO Reason for Exam: PAIN Examination: 2 view left lower leg TECHNIQUE: AP and lateral x-rays of the left tibia and fibula INDICATION: Cellulitis left lower extremity, one in the mid lower leg, pain, trauma, diabetic Prior: None FINDINGS: No fracture, erosion, periosteal new bone formation, or other abnormality aside from mild atherosclerotic vascular calcifications. XR/XR tibia fibula LT 2V IMPRESSION: Unremarkable left tibia and fibula. Electronically signed by: Robert Whittaker MD 01/26/2025 12:23 PM EST RP Dictated By: Robert Whittaker MD Signed By: <Electronically signed by Robert Whittaker MD in OV> 01/26/25 1223 DD/ 1158 TD/TT: 01/26/25 1200 Cold Working Inspector: Jana Pickett DO IMG XR PROCEDURES Final Resu lt documented in this encounter Visit Diagnoses Diagnosis Cellulitis of left lower extremity- Primary documented in this encounter Additional Health Concerns Active Problems Noted Date Diagnosed Date Help patients manage their type 2 diabetes 01/24 Patient has chronic kidney disease 01/24/2025 Patient has chronic kidney disease 01/26/2025 Assessment Noted Time PHQ-9 Depression Total Score: 2 03/30/19 25 10:13 AM EST documented as of this encounter Care Teams Life Skills Coordinator Relationship Specialty Start Date End Date Celine Galvez NP [address] [place] [address] PCP - General Family Medicine 04/13/23 documented as of this encounter
--- OUTSIDE RECORDS SUMMARY | 2025-01-26 14:44 | XMS_ITS | Encounter Summary ---
Author Organization [employer] Address [address] [facility] [address], [place] [address] Care Team Providers Care Patrol Commander Name Role Phone Celine Galvez NP Primary Care Provider [phone] Reason for Visit * Reason Comments Med Refill Encounter Details Date Type Department Care Team (Late Contact Info) Description 01/17/2024 Refill [facility] [address] [place] [address] Celine Galvez NP [address] [place] [address] Social History Tobacco Use Types Packs/Day Years [...] Department Care Team (Late Contact Info) Description 03/15/2025 2:00 PM EST Office Visit [facility] [address] [place] [address] Maureen Guillaume, OD [address] [place] [address] 03/16/2025 11:00 AM EST Office Visit [facility] [address] [place] [address] Celine Galvez NP [address] [place] [address] documented as of this encounter Visit Diagnoses Not on filedocumented in this encounter Care Teams Patrol Commander Relationship Specialty Start Date End Date Celine Galvez NP [address] [place] [address] PCP - General Family Medicine 04/13/23 documented as of this encounter
--- OUTSIDE RECORDS SUMMARY | 2025-01-26 14:44 | XMS_ITS | Encounter Summary ---
Author Organization [employer] Address 75 [facility] 7 [place] [address] Care Team Providers Care Carbon Grinder Name Role Phone Celine Galvez NP Primary Care Provider [phone] Reason for Visit * Reason Onset Date Comments March recall 01/24/2025 Encounter Details Date Type Department Care Team ([facility] st Contact Info) Description 01/24/2025 Telephone [facility] MED[facility] [address] [place] [address] Celine Galvez NP [address] [place], [place] [phone] March recall Social History Tobacco Use Types Packs/Day Years [...] Telephone Encounter - Franny Camacho MA - 01/24/2025 2:06 PM EST Telephone call to patient to schedule the following recall: March Visit type: Follow up Appointment notes: DM Patient agree to appointment on 03/16/2025 at 11:00 AM with Leonor. Reminder will be sent. documented in this encounter Plan of Treatment Upcoming Encounters Date Type Department Care Team (Late st Contact Info) Description 03/15/2025 2:00 PM EST Office Visit [facility] [address] [place] [address] Maureen Guillaume, OD [address] [place] [address] 03/16/2025 11:00 AM EST Office Visit [facility] [address] [place] [address] Celine Galvez NP [address] [place] [address] documented as of this encounter Goals Goal Patient Goal Type Associated Problems Recent Progress Patient-Stated? Author Help patients manage their type 2 diabetes Care Plan Help patients manage their type 2 diabetes Franny Medrano MA Patient has chronic kidney disease Care Plan Patient has chronic kidney disease Franny Medrano MA documented as of this encounter Visit Diagnoses Not on filedocumented in this encounter Additional Health Concerns Active Problems Noted Date Diagnosed Date Help patients manage their type 2 diabetes 01/24 Patient has chronic kidney disease 01/24/2025 Assessment Noted Time PHQ-9 Depression Total Score: 2 03/30/19 25 10:13 AM EST documented as of this encounter Care Teams Carbon Grinder Relationship Specialty Start Date End Date Celine Galvez NP [address] [place] [address] PCP - General Family Medicine 04/13/23 documented as of this encounter
--- OUTSIDE RECORDS SUMMARY | 2025-01-26 14:44 | XMS_ITS | Encounter Summary ---
Author Organization [employer] Address 75 [facility] 7 [place] [address] Care Team Providers Care Software Test Specialist Name Role Phone Emerita Chavarria BUTCHER HEAD Primary Care Provider Mary Gordon BUTCHER HEAD Primary Care Provider [phone] Celine aGlvez NP Primary Care Provider [phone] Reason for Visit * Reason Onset Date Comments triage 04/11/2022 Encounter Details Date Type Department Care Team (Late st Contact Info) Description 04/11/2022 Telephone [facility] MED[facility] [address] [place] [address] Emerita Chavarria FNP triage Social History Tobacco Use Types Packs/Day [...] Description 03/15/2025 2:00 PM EST Office Visit [facility] [address] [place] [address] Maureen Guillaume, OD [address] [place] [address] 03/16/2025 11:00 AM EST Office Visit [facility] [address] [place] [address] Celine Galvez NP [address] [place] [address] documented as of this encounter Visit Diagnoses Not on filedocumented in this encounter Care Teams Software Test Specialist Relationship Specialty Start Date End Date Emerita Chavarria FNP PCP - General Family Medicine 11/30/20 11/17/22 Mary Ruff FNP [address] [place] [address] PCP - General Family Medicine 11/18/22 04/12/23 Celine Galvez NP [address] [place] [address] PCP - General Family Medicine 04/13/23 documented as of this encounter
--- OUTSIDE RECORDS SUMMARY | 2025-01-26 14:44 | XMS_ITS | Encounter Summary ---
Author Organization [employer] Address [address] [facility] [address] 7[address] [place] [address] Care Team Providers Care Flight Inspector Name Role Phone Celine Galvez NP Primary Care Provider [phone] Encounter Details Date Type Department Care Team (Latest Contact Info) Description 01/26/2025 Travel Social History Tobacco Use Types Packs/Day Years [...] Description 03/15/2025 2:00 PM EST Office Visit [facility] [address] [place] [address] TarMaureen pulido, OD [address] [place] [address] 03/16/2025 11:00 AM EST Office Visit [facility] [address] [place] [address] Celine Galvez NP [address] [place] [address] documented as of this encounter Goals Goal [...] Torres MA documented as of this encounter Visit Diagnoses Not on filedocumented in this encounter Additional Health Concerns Active Problems Noted Date Diagnosed Date Help patients manage their type 2 diabetes 01/24 Patient has chronic kidney disease 01/24/2025 Patient has chronic kidney disease 01/26/2025 Assessment Noted Time PHQ-9 Depression Total Score: 2 03/30/19 25 10:13 AM EST documented as of this encounter Care Teams Flight Inspector Relationship Specialty Start Date End Date Celine Galvez NP [address] [place] [address] PCP - General Family Medicine 04/13/23 documented as of this encounter
--- OUTSIDE RECORDS SUMMARY | 2025-01-26 14:44 | XMS_ITS | Encounter Summary ---
Author Organization [employer] Address [address] [address] Care Team Providers Care Farm Equipment Maintenance Supervisor Name Role Phone Celine Galevz NP Primary Care Provider [phone] Reason for Visit * Reason Onset Date Comments Med Refill 10/16/2023 Encounter Details Date Type Department Care Team (Late st Contact Info) Description 10/16/2023 Telephone [facility] [address] [place] [address] Celine Galvez NP [address] [place], [place] [phone] Med Refill Social History Tobacco Use Types [...] Jardiance 10 MG To be sent to: [id number] - [place], [place] - [address] [facility] [address] documented in this encounter Plan of Treatment Upcoming Encounters Date Type Department Care Team (Late st Contact Info) Description 03/15/2025 2:00 PM EST Office Visit [facility] [address] [place] [address] Maureen Guillaume OD [address] [place] [address] 03/16/2025 11:00 AM EST Office Visit [facility] [address] [place] [address] Celine Galvez NP [address] [place] [address] documented as of this encounter Visit Diagnoses Not on filedocumented in this encounter Care Teams Farm Equipment Maintenance Supervisor Relationship Specialty Start Date End Date Celine Galvez NP 230 [place] [address] PCP - General Family Medicine 04/13/23 documented as of this encounter
--- OUTSIDE RECORDS SUMMARY | 2025-01-26 14:44 | XMS_ITS | Encounter Summary ---
Author Organization [employer] Address [address] [address] Care Team Providers Care Wheel Aligner Name Role Phone Celine Galvez NP Primary Care Provider [phone] Reason for Visit * Reason Comments Med Refill Encounter Details Date Type Department Care Team (Late Contact Info) Description 10/29/2023 Refill [facility] MED[facility]INE [address] [place] [address] Celine Galvez NP [address] [place] [address] Social History Tobacco Use Types Packs/Day Years [...] Description 03/15/2025 2:00 PM EST Office Visit [facility] [address] [place] [address] Maureen Guillaume, OD [address] [place] [address] 03/16/2025 11:00 AM EST Office Visit [facility] [address] [place] [address] Celine Galvez NP [address] [place] [address] documented as of this encounter Visit Diagnoses Not on filedocumented in this encounter Care Teams Wheel Aligner Relationship Specialty Start Date End Date Celine Galvez NP [address] [place] [address] PCP - General Family Medicine 04/13/23 documented as of this encounter
--- OUTSIDE RECORDS SUMMARY | 2025-01-26 14:44 | XMS_ITS | Encounter Summary ---
Author Organization [email or web address] Address 75 [facility] 7 [place] [address] Care Team Providers Care Courtesy Van Driver Name Role Phone Celine Galvez NP Primary Care Provider [phone] Reason for Visit * Reason Comments Med Refill Encounter Details Date Type Department Care Team (Late Contact Info) Description 08/06/2023 Refill [facility] [address] [place] [address] Celine Galvez NP [address] [place] [address] Social History Tobacco Use Types Packs/Day Years [...] Description 03/15/2025 2:00 PM EST Office Visit [facility] [address] [place], [place] [phone] Maureen Guillaume, OD [address] [place] [address] 03/16/2025 11:00 AM EST Office Visit [facility] [address] [place] [address] Celine Galvez NP [address] [place] [address] documented as of this encounter Visit Diagnoses Not on filedocumented in this encounter Care Teams Courtesy Van Driver Relationship Specialty Start Date End Date Celine Galvez NP [address] [place] [address] PCP - General Family Medicine 04/13/23 documented as of this encounter
--- OUTSIDE RECORDS SUMMARY | 2025-01-26 14:44 | XMS_ITS | Encounter Summary ---
Author Organization [employer] Address [address] [address] Care Team Providers Care J2Ee Consultant Name Role Phone Celine Galvez NP Primary Care Provider [phone] Reason for Visit * Reason Onset Date Comments Med Refill 03/09/2024 Encounter Details Date Type Department Care Team (Late Contact Info) Description 03/09/2024 Refill [facility] [address] [place] [address] Celine Galvez NP [address] [place] [address] Social History Tobacco Use Types Packs/Day Years [...] Description 03/15/2025 2:00 PM EST Office Visit [facility] [address] [place] [address] Maureen Guillaume, OD [address] [place] [address] 03/16/2025 11:00 AM EST Office Visit [facility] [address] [place] [address] Celine Galvez NP [address] [place] [address] documented as of this encounter Visit Diagnoses Not on filedocumented in this encounter Care Teams J2Ee Consultant Relationship Specialty Start Date End Date Celine Galvez NP [address] [place] [address] PCP - General Family Medicine 04/13/23 documented as of this encounter
--- OUTSIDE RECORDS SUMMARY | 2025-01-26 14:44 | XMS_ITS | Encounter Summary ---
Author Organization [employer] Address 75 [facility] 7 [place] [address] Care Team Providers Care Legal Transcriber Name Role Phone Celine Galvez NP Primary Care Provider [phone] Reason for Visit * Reason Comments Med Refill Encounter Details Date Type Department Care Team ([facility] st Contact Info) Description 11/14/2024 Refill [facility] MEDICINE [address] [place] [address] Celine Galvez NP [address] [place] [address] Type 2 diabetes mellitus without complication, without long-term current use of insulin (HCC) Social History Tobacco Use Types Packs/Day Years [...] Description 03/15/2025 2:00 PM EST Office Visit [facility] OPT[facility] [address] [place] [address] Maureen Guillaume, OD [address] [place] [address] 03/16/2025 11:00 AM EST Office Visit [facility] MEDICINE [address] [place] [address] Celine Galvez NP [address] [place] [address] documented as of this encounter Visit Diagnoses Diagnosis Type 2 diabetes mellitus without complication, without long-term current use of insulin (HCC) documented in this encounter Additional Health Concerns Assessment Noted Time PHQ-9 Depression Total Score: 2 03/30/19 25 10:13 AM EST documented as of this encounter Care Teams Legal Transcriber Relationship Specialty Start Date End Date Celine Galvez NP [address] [place] [address] PCP - General Family Medicine 04/13/23 documented as of this encounter
--- OUTSIDE RECORDS SUMMARY | 2025-01-26 14:44 | XMS_ITS | Encounter Summary ---
Author Organization [employer] Address 75 [facility] 7 [place] [address] Care Team Providers Care Supply Teacher Name Role Phone Celine Galvez NP Primary Care Provider [phone] Reason for Visit * Reason Comments Med Refill Encounter Details Date Type Department Care Team (Late Contact Info) Description 08/06/2023 Refill [facility] [address] [place] [address] Mary Ruff, ADMISSIONS ADVISOR [address] [place] [address] Social History Tobacco Use Types Packs/Day Years [...] Description 03/15/2025 2:00 PM EST Office Visit [facility] [address] [place] [address] Maureen Guillaume OD 267 [place] [address] 03/16/2025 11:00 AM EST Office Visit [facility] MED[facility]INE [address] [place] [address] Celine Galvez NP [address] [place] [address] documented as of this encounter Visit Diagnoses Not on filedocumented in this encounter Care Teams Supply Teacher Relationship Specialty Start Date End Date Celine Galvez NP [address] [place] [address] PCP - General Family Medicine 04/13/23 documented as of this encounter
--- OUTSIDE RECORDS SUMMARY | 2025-01-26 14:44 | XMS_ITS | Clinical Summary ---
Author Organization [facility] Address [address] [place] [address] Phone Care Team Providers Care Research & Insights Executive Name Role Phone Jana Pickett DO Primary Care Provider [phone] Social History Tobacco Use Types Packs/Day Years Used Date Smoking Tobacco: Never Assessed Sex and Gender Information Value Date Recorded Sex Assigned at Not on file Legal Sex Male 4:56 AM EST Gender Identity Not on file Sexual Orientation Not on file Plan of Treatment Upcoming Encounters Date Type Department Care Team (Late st Contact Info) Description 04/17/2025 2:15 PM EDT Consult Orthopedic Surgery - [place] [address] [phone] William Banda, DPAranza [address] [address] Health Maintenance Due Date Last Done Comments Colorectal Cancer Screening: Colonoscopy 1980 DTaP,Tdap,and Td Vaccines (1 - Tdap) 1997 Hepatitis B Vaccines (1 of 3 - 19+ 3-dose series) 1997 Depression Screening 02/10/2024 COVID-19 Vaccine (1 - 2024-2 6 season) 2024 Influenza Vaccine (#1) 2024 Cholesterol Screening (Lipid Panel) 10/21/2024 HIV Screening 10/21/2024 Hepatitis C Screening 10/21/2024 Social Influencers of Health Screening 10/21/2024 RSV Immunization Adult Patie nts (1 - 1-dose 75+ series) 2053 HIB Vaccines Aged Out No longer eligi [...] age to complete this topic Meningococcal B Vaccine Aged Out No l onger eligible based on patient's age to complete this topic Pneumococcal Vaccine: Pediat rics (0 to 5 Years) and At-Risk Patients (6 to 49 Years) Aged Out No longer eligible b ased on patient's age to complete this topic RSV Immunization Patients Un alise 20 months Aged Out No longer eligible b ased on patient's age to complete this topic Varicella Vaccines Aged Out No longer eligible based on patient's age to complete this topic Insurance [facility] PLAN Care Teams Research & Insights Executive Relationship Specialty Start Date End Date Jana Pickett DO [address] [place] [address] PCP - General Family Medicine 10/21/24
--- OUTSIDE RECORDS SUMMARY | 2025-01-26 14:44 | XMS_ITS | Encounter Summary ---
Author Organization [employer] Address 75 [facility] [address], [place] [address] Care Team Providers Care Bag Bleacher Name Role Phone Celine Galvez NP Primary Care Provider [phone] Reason for Visit * Reason Comments Med Refill Encounter Details Date Type Department Care Team (Late Contact Info) Description 10/14/2023 Refill [facility] MEDICINE [address] [place] [address] Celine Galvez NP [address] [place] [address] Social History Tobacco Use Types Packs/Day Years [...] Description 03/15/2025 2:00 PM EST Office Visit [facility] OPT[facility] [address] [place] [address] Maureen Guillaume, OD [address] [place] [address] 03/16/2025 11:00 AM EST Office Visit [facility] MEDIC[facility] [address] [place] [address] Celine Galvez NP [address] [place] [address] documented as of this encounter Visit Diagnoses Not on filedocumented in this encounter Care Teams Bag Bleacher Relationship Specialty Start Date End Date Celine Galvez NP [address] [place] [address] PCP - General Family Medicine 04/13/23 documented as of this encounter
--- OUTSIDE RECORDS SUMMARY | 2025-01-26 14:44 | XMS_ITS | Encounter Summary ---
Author Organization [employer] Address 75 [facility] 7 [place] [address] Care Team Providers Care Ocean Rescue Lieutenant Name Role Phone Celine Galvez NP Primary Care Provider [phone] Reason for Visit * Reason Comments Med Refill Encounter Details Date Type Department Care Team (Late Contact Info) Description 11/23/2023 Refill [facility] PEDS [address] [place] [address] Celine Galvez NP 230 [place] [address] Social History Tobacco Use Types Packs/Day Years [...] Description 03/15/2025 2:00 PM EST Office Visit [facility] OPT[facility]RY [address] [place] [address] Maureen Guillaume OD [address] [place] [address] 03/16/2025 11:00 AM EST Office Visit [facility] MEDICINE 230 [place] [address] Celine Galvez NP [address] [place] [address] documented as of this encounter Visit Diagnoses Not on filedocumented in this encounter Care Teams Ocean Rescue Lieutenant Relationship Specialty Start Date End Date Celine Galvez NP [address] [place] [address] PCP - General Family Medicine 04/13/23 documented as of this encounter
--- OUTSIDE RECORDS SUMMARY | 2025-01-26 14:44 | XMS_ITS | Clinical Summary ---
Author Organization [employer] Address [address] [facility] 7 [place] [address] Care Team Providers Care Slot Service Specialist Name Role Phone Celine Galvez NP Primary Care Provider [phone] Allergies No known active allergies Medications cholecalciferol (Vitamin D-3) 50 MCG (1999) capsule Take 1 capsule by mouth in the morning. 1 Active Blood Glucose Monitoring Suppl (FreeStyle Lite) deviceIndication s:Type 2 diabetes mellitus without complication, without long-term current use of insulin ([facility]) Inject 1 each under the skin 3 times daily. 1 each 5 Active Lancets 33G misc 1 each 3 times daily. 1 each 3 5 Active metFORMIN (Glucophage) 500 MG tabletIndication s:Type 2 diabetes mellitus without complication, without long-term current use of insulin ([facility]) Take 2 tablets (1,000 mg) by mouth 2 times daily. 360 tablet 2 5 Active empagliflozin (Jardiance) 10 MGIndications:Ty pe 2 diabetes mellitus without complication, without long-term current use of insulin ([facility]) TAKE 1 TABLET BY MOUTH EVERY DAY IN THE MORNING 90 tablet 2 5 Active SUMAtriptan (Imitrex) 25 MG tabletIndication s:Intractable migraine without aura and without status migrainosus TAKE 1 TABLET BY MOUTH ONCE NEEDED FOR MIGRAINE FOR UP TO 9 DAYS, MAY REPEAT DOSE ONCE IN 2 HOURS IF NO RELIEF( NOT TO EXCEED 2 DOSES IN 24 HOURS) 9 tablet 5 Active naproxen (Naprosyn) 500 MG tabletIndication s:Intractable migraine without aura and without status migrainosus TAKE 1 TABLET(500 MG) BY MOUTH TWICE DAILY 60 tablet 5 Active sulfamethoxazole -trimethoprim (Bactrim DS) 800-160 MG tablet Take 1 tablet by mouth 2 times daily for 7 days. 14 tablet 5 02/03/20 25 Active cephalexin (Keflex) 500 MG capsule Take 1 capsule (500 mg) by mouth 3 times daily for 7 days. 21 capsule 5 02/03/20 25 Active econazole nitrate 1 % creamIndications :Tinea pedis of both feet Apply topically Once per day. For 4 weeks 30 g 5 01/12/20 Active Problems Problem Noted Date Diagnosed Date Screening for colon cancer 06/07/2024 Assessment & Plan (12/12/2024 12:43 PM EST): -pt is encouraged to complete Cologuard test. 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 Short-term weight goal of 207 lbs in 3 months Dietary Recommendations: Fruits, vegetables, whole grains, protein foods, and fat-free or low-fat dairy products are healthy choices. Eat different types of protein foods in your diet. This can include seafood, lean meats, poultry, beans, peas, lentils, nuts, seeds, soy products, and eggs. Limit foods and beverages higher in added sugars, saturated fat, and sodium. Exercise Recommendations: At least 150 minutes of moderate-intensity physical activity per week, or an equivalent combination of moderate- and vigorous-intensity activity -patient agrees to trial phentermine pending lukasz approval Assessment & Plan (10/18/2024 11:46 AM EDT): -patient expresses interest on pharmacological management, all of which were discussed -patient opts to start Zepbound to assist with weight management as this will also improve his A1c and obstructive sleep apnea symptoms. -Will start at low dose and titrate monthly pending patient tolerance -No contraindications identified: hx of pancreatitis, hx of medullary thyroid cancer. No known retinopathy. -Discussed side effects with patient: side effects of GLP1: nausea, vomiting, diarrhea & risk of pancreatitis. -discussed mechanism of action with patient which include eating small portions and not eating through sensation of fullness. -Advised to keep medication refrigerated, but do not freeze -Recommended to decrease soda and sugary beverage consumption. -Recommended at least 20 g per meal of protein to assist with satiety. -Recommended at least 150 min/week of moderate intensity exercise. 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 Eat different types of protein foods in your diet. This can include seafood, lean meats, poultry, beans, peas, lentils, nuts, seeds, soy products, and eggs. Limit foods and beverages higher in added sugars, saturated fat, and sodium. Exercise Recommendations: At least 150 minutes of moderate-intensity physical activity per week, or an equivalent combination of moderate- and vigorous-intensity activity [place] 04/26/2021 Tobacco dependence syndrome 04/26/2021 Vitamin D deficiency 2017 Sleep apnea 11/20/2017 Type 2 diabetes mellitus without complication Assessment & Plan (10/18/2024 11:43 AM EDT): -stable with POCT A1c 6.4% and glucose 121 mg/dL -continue current medication regimen -diet and lifestyle modifications reviewed -foot exam to be completed today; referral to podiatry -monitoring labs ordered Assessment & Plan (06/07/2024 12:04 PM EDT): -stable with POCT A1c 7.6% and glucose 117 -continue current medication regimen -diet and lifestyle modifications reviewed -referral placed for diabetic eye exam -foot exam to be completed at next visit -monitoring labs ordered Assessment & Plan (04/29/2024 5:08 PM EDT): -stable -A1c at goal of <7%. POCT glucose 103 mg/dL today; A1c 6.7% (03/30/23) -continue: metformin 1000 mg two times daily and jardiance 10 mg every day -microalbumin: stable 6.7 micrograms/mg cr -aspirin therapy not indicated at this time given ASCVD 10 yr risk 2.3 % -foot exam: deferred till next visit -daily foot exams encouraged -low carb, low sugar diet and daily physical activity advised -follow-up 4 months Encounters Date Type Department Care Team Description 01/26/2025 10:20 AM EST Office Visit [facility] [address] [place] [id number] Cellulitis of left lower extremity (Primary Dx) 01/26/2025 Travel 01/24/[address] [address] Celine Galvez NP March12/12/2024 11:30 AM EST Office Visit [address] [address] Celine Galvez NP Screening for colon cancer (Primary Dx); Type 2 diabetes mellitus without complication, without long-term current use of insulin (HCC); Encounter for immunization; Tinea pedis of both feet; Fertility testing; Class 1 obesity due to excess calories with serious comorbidity and body mass index (BMI) of 33.0 to 33.9 in adult 12/12/2024 Travel 12/09/[address] [address] Celine Galvez NP Chart Prep 11/14/[address] [address] Celine Galvez NP Type 2 diabetes mellitus without complication, without long-term current use of insulin (HCC) from Last 3 Months Immunizations Immunization Administration Dates Next Due Hep B, adult 12/12/2024,04/29/2024 Influenza injectable quadriv alent IIV4 with preservative [...] Passive Smoke Exposure: Never Smokeless Tobacco: Never Tobacco Cessation:Counseling Given: Not Answered Alcohol Use Standard Drinks/Week Comments Never 0 [...] the past 12 months, has t he [employer], gas, oil or water company threatened to [...] 20 01/26/2025 10:43 AM EST Oxygen Saturation 98% 12/12/2024 11:36 AM EST Inhaled Oxygen Concentration - - Weight 102 kg (224 lb 3.2 oz) 01/26/2025 10:43 A M EST Height 175.3 cm (5' 9 ) 01/26/2025 10:43 AM EST Body Mass Index 33.11 01/26/2025 10:43 AM EST Plan of Treatment Upcoming Encounters Date Type Department Care Team (Late st Contact Info) Description 03/15/2025 2:00 PM EST Office Visit [facility] [address] [place] [address] Maureen Guillaume, OD [address] [place] [address] 03/16/2025 11:00 AM EST Office Visit [facility] [address] [place] [address] Celine Galvez NP [address] [place] [address] Health Maintenance Due Date Last Done Comments CT Colonography 1978 Colonoscopy 1978 Colorectal Cancer Screening 1978 FIT DNA/Cologuard 1978 FIT 1978 FOBT 1978 Sigmoidoscopy 1978 COVID-19 Vaccine ( season) 2024 03/18/2023, 03/01/2021, 06/06/2020 Influenza Vaccine (#1) 2024 , 12/07/2020, 11/10/2019, Additional history exists Hepatitis B Vaccines (3 of 3 - 19+ 3-dose series) 02/06/2025 12/12/2024, 04/29/2024 Alcohol/Substance Use Screening 03/30/2025 03/30/2024 Depression Screening 03/30/2025 03/30/2024, 03/30/19 25 SDOH Screening 03/30/2025 03/30/2024 Diabetes: Urine Protein Screening 04/08/2025 04/08/2024, 07/24/2021 Lipid Panel 04/08/2025 04/08/2024, 07/10, 04/26/2021 Family Planning (PISQ) 04/29/2025 04/29/2024 Diabetes: Hemoglobin A1C 06/11/2025 025, 08/29/2024, 03/30/2024, Additional history exists Disability Screening 08/28/2025 08/28/2024 Eye Exam 09/12/2025 09/12/2024, 05/2024, 09/12/2024, Additional history exists Diabetes: Foot Exam 12/12/2025 12/12/2024, 12/12/2024, 12/12/2024, Additional history exists Tobacco Screening 12/12/2025 12/12/2024 Zoster Vaccines (1 of 2) 2028 DTaP/Tdap/Td Vaccines (2 - Td or Tdap) 04/27/2031 04/26/2021 RSV Patients and Patients Aged 60 years or older (1 - 1-dose 75+ series) 2053 Pneumococcal Vaccine: Pediatrics (0 to 5 Years) and At-Risk Patients (6 to 49) Years Completed 03/30/2024 HIV Screening Completed 04/08/2024, 04/26/2021 Hepatitis C Screening Completed 04/08/2024 , 07/24/2021, 04/26/2021 HIB Vaccines Aged Out No longer eligi [...] on patient's age to complete this topic Goals Goal Patient Goal Type Associated Problems Recent Progress Patient-Stated? Author Help patients manage their type 2 diabetes Care Plan Help patients manage their type 2 diabetes Franny Medrano MA Patient has chronic kidney disease Care Plan Patient has chronic kidney disease Franny Medrano MA Patient has chronic kidney disease Care Plan Patient has chronic kidney disease Ignacia Torres MA Procedures Procedure Name Priority Date/Time Associated Diagnosis Comments XR TIBIA FIBULA 2 VIEWS LEFT Routine 01/26/2025 11:58 AM EST Cellulitis of left lower extremity POCT GLUCOSE Routine 12/12/2024 11:37 AM EST Type 2 diabetes mellitus without complication, without long-term current use of insulin (HCC) POCT GLYCATED HEMOGLOBIN, TOTAL Routine 12/12/2024 11:37 AM EST Type 2 diabetes mellitus without complication, without long-term current use of insulin (HCC) HEPATITIS C AB W/REFL TO HCV RNA, QN, PCR Routine 04/08/2024 8:32 AM EST Encounter for health-related screening HIV 1/2 ANTIGEN/ANTIBODY, FOURTH GENERATION W/RFL Routine 04/08/2024 8:32 AM EST Encounter for health-related screening ALBUMIN, RANDOM URINE W/CREATININE Routine 04/08/2024 8:32 AM EST Type 2 diabetes mellitus without complication, without long-term current use of insulin (CMS/HCC) LIPID PANEL, STANDARD Routine 04/08/2024 8:32 AM EST Type 2 diabetes mellitus without complication, without long-term current use of insulin (CMS/HCC) from Last 3 Months or Most Recently Relevant to Health Maintenance Results * XR Tibia Fibula 2 Views Left (01/26/2025 11:58 AM EST) Anatomical Region Laterality Modality Lower Extremities, Lower Leg Left Rad iographic Imaging 01/26/2025 11:5 8 AM EST Narrative 01/26/2025 12:26 PM EST [facility] [address] [place] [address] XRay Report Signed Patient: Jeff Tello Jr. MR#: Aranza [id number] : 1980 Acct:[id number] Age/Sex: 44 / M ADM Date: 01/26/25 Loc: [facility] Attending Dr: Jana Pickett DO Ordering Physician: Jana Pickett DO Date of Service: 01/26/25 Procedure(s): XR tibia fibula LT 2V Accession Number(s): [id number] cc: [facility]; Jana Pickett DO Reason for Exam: PAIN [...] by: Robert Whittaker MD 01/26/2025 12:23 PM [facility] Dictated By: Robert Whittaker MD Signed By: <Electronically signed by Robert Whittaker MD in OV> 01/26/25 1223 DD/ 1158 TD/TT: 01/26/25 [address] [place] Director: Procedure Note Donotuseinterpreter, Image - 01/26/2025 [facility] [address] [place] [address] XRay Report Signed Patient: Jeff Tello Jr.MR#: Aranza [id number] : 1980Acct:[id number] Age/Sex: 44 / MADM Date: 01/26/25 Loc: [facility] Attending Dr: Jana Pickett DO Ordering Physician: Jana Pickett DO Date of Service: 01/26/25 Procedure(s): XR tibia fibula LT 2V Accession Number(s): [id number] cc: [facility]; Jana Pickett DO Reason for Exam: PAIN [...] Robert Whittaker MD 01/26/2025 12:23 PM EST Dictated By: Robert Whittaker MD Signed By: <Electronically signed by Robert Whittaker MD in OV> 01/26/25 1223 DD/ 1158 TD/TT: 01/26/25 [address] [facility] Director: Jana Pickett DO IMG XR PROCEDURES Final Resu lt * (ABNORMAL) POCT Hgb A1c (12/12/2024 11:37 AM EST) Hemoglobin A1C 6.6(A) 4.0 - 5.7 % QC Media Lot # [id number] Lot# Expiration Date 51,227 Blood 12/12/2024 11:3 7 AM EST Celine Varma [employer] POINT OF CARE TEST ENTER/EDIT O RDERABLES Final Result * POCT Glucose (12/12/2024 11:37 AM EST) Glucose Blood, POC 127 60 - 200 mg/dL QC Media Lot # [id number] Lot# Expiration Date 31,126 Blood Capillary blood specimen / Unknown 12/12/2024 11:37 AM EST Celine Varma UMBERTO POINT OF CARE TEST ENTER/EDIT O RDERABLES Final Result * Albumin, Random Urine W/Creatinine (04/08/2024 8:32 AM EST) Creatinine, Urine 148.00 mg/dL [facility] Microalbumin Urine 10.0 mg/L [facility] Microalbum Creatinine Ratio Ur 6.7 <30 ug/mg cr [facility] Comment:Albumin/Creatinine R atio Reference Ranges: Normal: < 30 ug/mg creatinine Microalbuminuria: 30 - 300 ug/mg creatinineClinical Albuminuria: > 300 ug/mg creatinine Urine (Urine, Random) 04/08/2024 8:32 AM EST 04/08/2024 10:52 AM EST [facility] LAB URINE ORDERABLES Final Resu lt Performing Organization Address [facility] de Phone Number [facility] [address] [place] [phone] * Hepatitis C Antibody with Reflex to HCV, RNA, Quantitative, Real-Time PCR (04/08/2024 8:32 AM EST) Hepatitis C Antibody Nonreactive Nonreactive [facility] Comment:Antibodies to HCV no t detected; does not exclude early acuteHCV infection. Blood Venous blood specimen / Unknown 04/08/2024 8:32 AM EST 04/08/2024 10:54 AM EST [facility] LAB BLOOD ORDERABLES Final Resu lt Performing Organization Address [facility] Co de Phone Number [facility] [address] [place] [address] [phone] * HIV-1/2 Antigen and Antibodies, Fourth Generation, with Reflexes (04/08/2024 8:32 AM EST) HIV AB/AG Nonreactive Nonreactive [facility] Comment:HIV-1 p24 Ag and/or HIV-1/HIV-2 Ab not detected.A test result that is nonreactive does not exclude thepossibility of exposure to or infection with HIV-1 and/orHIV-2. Nonreactive results in this assay for individualswith prior exposure to HIV-1 and/or HIV-2 may be due toantigen and antibody levels that are below the limit ofdetection of this assay.The [employer] HIV Ag/Ab Combo assay result andsupplemental assay results should be interpreted inconjunction with the patient's clinical presentation,history and other laboratory results. If the results areinconsistent with clinical evidence, additional testing issuggested to confirm the result. Blood Venous blood specimen / Unknown 04/08/2024 8:32 AM EST 04/08/2024 10:54 AM EST Celine Galvez [employer] LAB BLOOD ORDERABLES Final Resu lt [facility] [address], [place] [phone] * (ABNORMAL) Lipid Panel, Standard (04/08/2024 8:32 AM EST) Triglycerides 131 <150 mg/dL [facility] Comment:Desirable Triglyceri de: less than 150 mg/dLBorderline High Triglyceride 150-199 mg/dLHigh Triglyceride: 200-499 mg/dLVery High Triglyceride: greater than or equal to 5OO mg/dL Cholesterol 182 <200 mg/dL [facility] Comment:Desirable Cholestero l: less than 200 mg/dLBorderline High Cholesterol: 200-239 mg/dLHigh Cholesterol: greater than 239 mg/dL LDL Cholesterol Calculated 117(H) <100 mg/dL [facility] Comment:Desirable LDL: less than 100 mg/dLNear Optimal/Above Optimal LDL: 110- 129 mg/dLBorderline High LDL: 130-159 mg/dLHigh LDL: 160-189 mg/dLVery High LDL: greater than or equal to 190 mg/dL HDL Cholesterol 39(L) >40 mg/dL [facility] Comment:Desirable HDL: great er than 40 mg/dL Note: This HDL assay may give artificially low results in patients with liver disease. Blood Venous blood specimen / Unknown 04/08/2024 8:32 AM EST 04/08/2024 10:54 AM EST us Celine Galvez NP LAB BLOOD ORDERABLES Final Resu lt [facility] [address] [place] [address] [phone] from Last 3 Months or Most Recently Relevant to Health Maintenance Additional Health Concerns Active Problems Noted Date Diagnosed Date Help patients manage their type 2 diabetes 01/24 Patient has chronic kidney disease 01/24/2025 Patient has chronic kidney disease 01/26/2025 Insurance [facility] Care Teams Slot Service Specialist Relationship Specialty Start Date End Date Celine Galvez NP [address] [place] [address] PCP - General Family Medicine 04/13/23
== END 2025-01-26 11:14 | disposition home or self-care (01) ==
LOC: HO.HHCX 11:13
PROVIDERS: Visit Provider Family Medicine
DX: L03.116 Cellulitis of left lower limb (principal)
CPT/HCPCS: 73590; 87070; 87205

== ENCOUNTER → 2025-01-26 11:58 | Outpatient (BNV) | payer OTHER, SELFPAY | PROVIDERS: Visit Provider Radiology Diagnostic Radiology | DX: M79.662 Pain in left lower leg (principal) | CPT/HCPCS: 73590 ==